=== PATIENT | male | born 1995 | race American Indian/Alaskan Native ===

== ENCOUNTER 2021-09-25 16:58 | Emergency (ER) | payer SELFPAY ==
[2021-09-25 17:01] VITALS: BP 152/83
[2021-09-25] MEDS ORDERED: TETANUS,DIPH,PERTUSS(ACELL) VACCINE 0.5 ML SYRINGE IM ONE (17:13)
--- NOTE | 2021-09-25 17:16 | Emergency Department Report ---
[place] [facility] Chief Complaint: Wound/Laceration Stated Complaint: LEFT FINGER INJURY Time Seen by Provider: 09/25/21 17:08 Occurred When: Before Yesterday Location: Upper Extremity (Left ring finger) Tetanus Status: Up to Date Laceration Symptoms: Yes Pain, No Foreign Body Sensation, No Numbness, No Weakness Other History: 26-year-old -[place] male presents to the emergency room for left ring finger laceration 2 days ago. Patient states he has no known drug allergies. Patient reports that he cannot get off work to get his finger looked at. He does admit to cleaning it with alcohol. States that it is sore. Will need a tetanus shot. ED Review of Systems ROS: Stated complaint: LEFT FINGER INJURY Other details as noted in HPI ED Past Medical Hx - Medications Home Medications: Home Medications Medication Instructions Recorded Confirmed Last Taken Type Mupirocin [Bactroban 2%] 1 applic TP TID #1 tube 09/25/21 Unknown Rx cephALEXin [Keflex] 500 mg PO Q8HR 7 Days #21 cap 09/25/21 Unknown Rx Laceration Physical Exam - Exam General: Vital signs noted. No distress. Alert and acting appropriately. Wound Length (cm): 3 Laceration Location: Upper Extremity (Swelling purulent crust/discharge. Tender to touch) Laceration Exam: Yes Normal Distal CMS, No Foreign Body, No Exposed Tendon, Vessel, or Nerve, No Tendon Injury ED Course Vital Signs 09/25/21 17:00 Temperature 98.2 F Pulse Rate 52 L Respiratory 16 Rate Blood Pressure 152/83 [Left] O2 Sat by Pulse 95 Oximetry ED Medical Decision Making - Medical Decision Making 26-year-old -[place] male presents to the emergency room for left ring finger laceration 2 days ago. Patient states he has no known drug allergies. Patient reports that he cannot get off work to get his finger looked at. He does admit to cleaning it with alcohol. States that it is sore. Will need a tetanus shot. Patient has a 2-day-old laceration would not be able to suture. Patient be placed on Keflex given a tetanus shot instructed to to do wound care daily. Tylenol or ibuprofen as needed for pain management. Apply Bactroban to wound Critical care attestation.: If time is entered above; I have spent that time in minutes in the direct care of this critically ill patient, excluding procedure time. ED Disposition Clinical Impression: Infected finger laceration Disposition: 01 HOME / SELF CARE / HOMELESS Is pt being admited?: No Does the pt Need Aspirin: No Condition: Stable Instructions: Laceration Care, Adult, [id number] Additional Instructions: Complete antibiotics as prescribed use Bactroban antibiotic cream as prescribed. Tylenol or ibuprofen as needed for pain management. Dressing changes daily. Follow-up with a wound care clinic if no improvement or your primary care provider. Prescriptions: Mupirocin [Bactroban 2%] 1 applic TP TID #1 tube cephALEXin [Keflex] 500 mg PO Q8HR 7 Days #21 cap [facility]errals[facility] - 3-5 Days Forms: Work/School Release Form(ED) Time of Disposition: 17:17
== END 2021-09-25 18:11 | disposition home or self-care (01) ==
LOC: ED 16:58
DX: S61.215A Laceration without foreign body of left ring finger without damage to nail, initial encounter (principal); X58.XXXA Exposure to other specified factors, initial encounter; Y93.89 Activity, other specified; Y92.89 Other specified places as the place of occurrence of the external cause; Y99.8 Other external cause status
CPT/HCPCS: 90471; 90715; 99282